=== PATIENT | male | born 1945 | race Caucasian/White ===

== ENCOUNTER 2016-12-03 11:24 | Inpatient (IN) | payer MEDICARE, OTHER ==
[2016-11-20 16:28] LABS: INTERNATIONAL NORMAL RATI 1.1 UNITS (-); PARTIAL THROMBO TIME 26.2 SEC (22.5-37.2); PROTIME (NOT ORD) 13.6 SEC (12.0-14.5)
[2016-11-20 16:29] LABS: HEMATOCRIT 48.8 % (40.0-51.0); HEMOGLOBIN 16.5 g/dL (13.6-17.8); MEAN CORPUSCULAR HEMOGLOB 30.7 pg (26.0-34.0); MEAN CORPUSCULAR VOLUME 90.9 fL (80-100); MEAN PLATELET VOLUME 11.5 fL (9.2-13.0); NUCLEATED RED BLOOD CELLS 0.7 /100WBC (0-0); PLATELET COUNT 174 10/3/uL (150-400); RBC DISTRIBUTION WIDTH 13.9 % (12.0-16.0); RED CELL COUNT 5.37 10/6/uL (4.7-6.1); WHITE BLOOD CELLS 16.1 10/3/uL (4.5-10.5)
[2016-11-20 16:34] LABS: MANUAL DIFF YES %; MEAN CORPUS HGB CONC 33.8 g/dL (32.0-36.0)
[2016-11-20 16:52] LABS: A/G RATIO 1.2 (0.7-1.9); ALBUMIN 4.1 G/DL (3.5-5.0); ALKALINE PHOSPHATASE 60 U/L (45-117); CALCIUM, SERUM 9.4 MG/DL (8.5-10.4); CHLORIDE, SERUM 104 MMOL/L (96-112); CO2 (CARBON DIOXIDE) 30 MMOL/L (24-34); GFR AFRICAN AMERICAN 77 ML/MIN (>=60); GFR NON AFRICAN AMERICAN 66 ML/MIN (>=60); GLOBULIN 3.4 G/DL (2.5-4.1); GLUCOSE, SERUM 151 MG/DL (60-99); POTASSIUM, SERUM 4.1 MMOL/L (3.5-5.3); SGOT(AST) 24 U/L (5-40); SGPT(ALT) 37 U/L (5-65); SODIUM, SERUM 141 MMOL/L (135-148); TOTAL PROTEIN 7.5 G/DL (6.0-8.5)
[2016-11-20 16:55] LABS: BUN (BLOOD UREA NITROGEN) 15 MG/DL (6-23); TOTAL BILIRUBIN 0.3 MG/DL (0-1.2)
[2016-11-20 17:15] LABS: BAND NEUTROPHILS 9 %; EOSINOPHILS 2 %; EOSINOPHILS ABSOLUTE (CALC) 0.32 10/3/uL (0.0-0.53); LYMPHOCYTES 35 %; LYMPHOCYTES ABSOLUTE (CALC) 5.64 10/3/uL (0.67-4.30); MONOCYTES 8 %; MONOCYTES ABSOLUTE (CALC) 1.29 10/3/uL (0.21-1.20); NEUTROPHILS ABSOLUTE (CALC) 8.86 10/3/uL (2.02-8.40); SEGMENTED NEUTROPHIL (0) 46 %; TEARDROP SHAPED RBCS FEW (3-10/OIF); TOTAL NUCLEATED CELLS 100
[2016-11-20 17:16] LABS: PLATELET ESTIMATE ADQ (ADEQUATE)
[2016-11-20 18:11] LABS: ASCORBIC ACID (UR NOT ORDER) 40 (NEG); BILIRUBIN, URINE NEGATIVE (NEG); KETONE, URINE NEGATIVE (NEG); LEUKOCYTE ESTERASE(NOT OR NEG (NEG); WBC (NOT ORDERED) (RFLEX) 1 (0-5)
[2016-11-20 18:19] LABS: PATH REVIEW YES
[2016-11-20 18:20] LABS: SMUDGE CELLS MOD
[2016-11-23 07:39] LABS: PATH REVIEW SEE PATHOLOGY REPORT
--- NOTE | ~2016-12-03 | OP ---
Record Of Operation [facility] [address] [place]. [address] NAME: AURE DIETZ : 41 STATUS : ADM IN PAT#: [id number] AGE: 71 ADM/REG DATE : 12/03/16 MR#: [id number] REPORT SERV DATE: 12/03/16 DICTATED BY: FIDELIA CHAVEZ DATE: 12/03/16 REPORT STATUS : Draft TRANSCRIBED BY: MODL DATE: 12/03/16 DATE OF PROCEDURE: 12/03/2016 PREOPERATIVE DIAGNOSIS: Left hip arthritis. POSTOPERATIVE DIAGNOSIS: Left hip arthritis. PROCEDURE PERFORMED: Left total hip arthroplasty. SURGEON: Fidelia Chavez M.D. TIMBER PACKER: Trevor Neves. ANESTHESIA: General with local infusion. PROCEDURE IN DETAIL: The patient is clearly identified and after obtaining informed consent is brought to the operating room at [facility] where here the patient is induced under general anesthesia and subsequently placed in the left lateral decubitus position. This concluded, the thigh and flank are prepped and draped in the usual manner. A time-out procedure successfully performed and after registering the knee and marking the anatomy through an approximately 4.5 incision, the skin is divided. The fascial planes are divided. The lateral fascia then is divided. Hemostasis is obtained with electrocautery and a Charnley retractor is applied. The piriformis is identified, tagged, divided, and retracted over the sciatic nerve felt deep in the wound. At which point, the mini approach to the hip is formed with dividing the capsule in a mini approach with a cuff of tissues remaining at the femoral side to accomplish repair at the conclusion of the case. Dislocating the hip, end-stage arthritic changes are noted. The tissue surrounding the femoral neck are protected with the Hohmann retractor and the femoral neck cut is made according to preoperative templating. This concluded, the femoral head is removed. The acetabulum is exposed. The labral and fluvial tissues are removed and reaming is performed. Subsequently trialing with the appropriate trial, the permanent acetabular components placed with the Nickerson Sector. At which point, the acetabular trial component is then placed. The proximal femur is then addressed. The structures posteromedial to the greater trochanter are removed and this concluded the cookie-cutter canal finder lateralizer and reaming is performed. This concluded, broaching is performed and with excellent fit-fill and stability for the implant trialing is performed finding excellent leg length, stability, no impingement, good kickback, no push-pull, and the lesser trochanter palpably at the appropriate distance from the ischium when compared to preoperative templating. The trials were felt to be appropriate. These are all then removed and the permanent implants are then carefully applied uneventfully. Copious irrigation is then performed with same stability and findings noted after insertion. At which point, the joint then is carefully closed in layers including capsule, piriformis, lateral fascia, deep tissues, and skin. Aquacel dressing is applied and the patient is then allowed to awaken, is placed supine and is returned to the recovery room in stable condition having tolerated the procedure well. ESTIMATED BLOOD LOSS: 100 mL. Record Of Operation [place] [id number] [facility] [place]. [address] NAME: AURE DIETZ : 41 STATUS : ADM IN [facility]#: [id number] AGE: 71 ADM/REG DATE : 12/03/16 MR#: [id number] REPORT SERV DATE: 12/03/16 DICTATED BY: FIDELIA CHAVEZ DATE: 12/03/16 REPORT STATUS : Draft TRANSCRIBED BY: SUZIE DATE: 12/03/16 FLUIDS: 1300 mL. TOURNIQUET TIME: None. PATHOLOGY: Sent specimen. MICROBIOLOGY: None. COMPLICATIONS: None. SPONGE AND NEEDLE COUNTS: Reportedly correct. ANTIBIOTICS: Administered appropriately preoperatively and ordered to be discontinued within 23 hours. IMPLANTS: DePuy Hip System, femur [place], size 7 standard +1.5/36 metal head. Acetabulum, Nickerson sector size 52 with a +4 neutral liner, and no screws. HOLLI/SUZIE Fidelia Chavez M.D. / [id number] CC: Fidelia Chavez M.D.
[~2016-12-03 11:24] MED LIST: ACCU20 PO; ALLEGRA180 PO; AMB5 PO; ASTEPRO0.15 % NAS; CALTRA600D PO; CELEXA20 PO; FISH-EPA1000 MG PO; FLOMAX4 PO; FLOVENT DISK50 MCG INH; HYDROCHLOROT12.5 MG PO; LEVOTHYROXIN50 MCG PO; MULTIVITAMI1 PO; NORV5 PO; PENTASA500 MG PO; TRAZODONE150 MG PO; VITAMIN C100 MG PO; VITAMIN D31000 UNIT PO; ZOCOR10 PO
[2016-12-03 23:13] LABS: INTERNATIONAL NORMAL RATI 1.2 UNITS (-); PROTIME (NOT ORD) 15.1 SEC (12.0-14.5)
[2016-12-04 06:01] LABS: HEMOGLOBIN 13.4 g/dL (13.6-17.8)
[2016-12-04 06:05] LABS: INTERNATIONAL NORMAL RATI 1.2 UNITS (-)
[2016-12-04 06:17] LABS: BUN (BLOOD UREA NITROGEN) 13 MG/DL (6-23); CHLORIDE, SERUM 102 MMOL/L (96-112); CREATININE 1.19 MG/DL (0.70-1.30); GFR AFRICAN AMERICAN 70 ML/MIN (>=60); GFR NON AFRICAN AMERICAN 60 ML/MIN (>=60); POTASSIUM, SERUM 4.7 MMOL/L (3.5-5.3); SODIUM, SERUM 136 MMOL/L (135-148)
[2016-12-04 06:20] LABS: HEMATOCRIT 38.3 % (40.0-51.0)
[2016-12-04 06:21] LABS: CALCIUM, SERUM 8.3 MG/DL (8.5-10.4); CO2 (CARBON DIOXIDE) 23 MMOL/L (24-34); GLUCOSE, SERUM 258 MG/DL (60-99)
[2016-12-05 05:29] LABS: HEMATOCRIT 36.1 % (40.0-51.0); HEMOGLOBIN 12.2 g/dL (13.6-17.8)
[2016-12-05 05:37] LABS: INTERNATIONAL NORMAL RATI 1.3 UNITS (-); PROTIME (NOT ORD) 16.3 SEC (12.0-14.5)
[2016-12-05] MEDS ORDERED: DSS PO (15:26)
[2016-12-05] MEDS ORDERED: C5 PO (15:27)
[2016-12-05] MEDS ORDERED: OXYCOD PO (15:28)
[2016-12-05] MEDS ORDERED: FERROUS SULF325 M1 PO (15:42)
== END 2016-12-05 17:01 | disposition home or self-care (01) | DRG 470 ==
LOC: SDC/OF 11:24 → PACU 16:30 → 1SO 18:08
PROVIDERS: Orthopaedic Surgery
PROC: 0SRB02A Replacement of Left Hip Joint with Metal on Polyethylene Synthetic Substitute, Uncemented, Open Approach (ICD-10-PCS; principal; 2016-12-03 12:30)
DX: M16.0 Bilateral primary osteoarthritis of hip (principal); K50.90 Crohn's disease, unspecified, without complications; I10 Essential (primary) hypertension; E03.9 Hypothyroidism, unspecified; N40.0 Benign prostatic hyperplasia without lower urinary tract symptoms; E78.00 Pure hypercholesterolemia, unspecified; F41.8 Other specified anxiety disorders; Z87.891 Personal history of nicotine dependence; Z79.01 Long term (current) use of anticoagulants; Z79.891 Long term (current) use of opiate analgesic; Z79.899 Other long term (current) drug therapy; Z88.5 Allergy status to narcotic agent
CPT/HCPCS: 36415; 71020; 72170; 80048; 80053; 81001; 82962; 85014; 85018; 85025; 85610; 85730; 86850; 86900; 86901; 87641; 88304; 88311; 97110-GP; 97116-GP; 97161-GP; 97165-GO; 97535-GO; A9270-GY; C1776; G8978-CK-GP; G8979-CI-GP; G8987-CJ-GO; G8988-CI-GO; J0690; J1170; J1885; J2250; J2270; J2274; J2405; J2710; J2795; J3010